=== PATIENT | male | born 1945 | race Caucasian/White ===

== ENCOUNTER 2023-10-24 11:58 | Inpatient (IN) | payer MEDICARE, BC ==
[~2023-10-24] VITALS: Ht 182.9 cm; Wt 99.7 kg
[~2023-10-24 11:58] MED LIST: ASPIRIN E.C. 8181 MG PO; DIOVAN160 M1 PO; EPA FISH OIL1000 MG PO; MULTIPLE VITAMI1 TAB PO; VYTORIN 10 MG-21 TAB PO
[2023-10-24] MEDS ORDERED: Dextrose 50% Water 25 GM/50 ML SYRINGE IV PRN (16:00)
[2023-10-24] MEDS ORDERED: Glucagon 1 MG VIAL IM PRN (16:00)
[2023-10-24] MEDS ORDERED: Dextrose (Glucose) 15 GM (4 x 3.75 GM) Chewable TABLET PACK PO PRN (16:00)
[2023-10-24] MEDS ORDERED: Docusate Sodium 100 MG CAP PO PRN (16:45)
[2023-10-24] MEDS ORDERED: Polyethylene Glycol 3350 17 GM PDS PO PRN (16:45)
[2023-10-24] MEDS ORDERED: Sennosides/Docusate 8.6-50 MG TAB PO PRN (16:45)
[2023-10-24] MEDS ORDERED: Naloxone 0.4 MG/ML VIAL IV PRN (16:45)
[2023-10-24] MEDS ORDERED: LIPITOR 40MG TA40 MG PO (16:48)
[2023-10-24] MEDS ORDERED: ASPIRIN E.C. 8181 MG PO (16:48)
[2023-10-24] MEDS ORDERED: ELIQUIS 5MG PO (16:48)
[2023-10-24] MEDS ORDERED: EPA FISH OIL1 SGL PO (16:49)
[2023-10-24] MEDS ORDERED: LOPRESSOR 550 MG/TAB PO (16:52)
[2023-10-24] MEDS ORDERED: Acetaminophen Oral Susp 325 MG/10.15 ML UD PEG PRN (17:00)
--- NOTE | 2023-10-24 17:36 | NUR ---
[facility] NO COMPLAINTS OF PAIN AT THIS TIME. VITALS STABLE. STARTED TUBE FEEDING THROUGH DOBHOFF PER ORDERS AT 50 MLS/HR. ASSESSED PT. PT HAS SOME WEAKNESS ON RUE. PT IS 1 ASSIST WITH WALKER AND GAIT BELT WHEN WALKING. TOLD PT TO CALL IF HE NEEDS TO GO TO THE BATHROM. BED ALARM ON. CALL LIGHT WITHIN REACH.
[2023-10-24 17:43] VITALS: BP 178/95; PULSE 84; TEMP 97.4
[2023-10-24] MEDS ORDERED: Insulin Aspart (NovoLOG) SQ SCH (18:00)
[2023-10-24 18:30] VITALS: BP_SYST 178
--- NOTE | 2023-10-24 20:00 | NUR ---
LAST SHIFT BP 178/95. RECHECKED BP 145/79
[2023-10-24 20:17] VITALS: BP 145/79; PULSE 98; TEMP 98.1
--- NOTE | 2023-10-24 20:30 | NUR ---
PT RESTING IN BED. A&OX4. SEE COMPLETED SHIFT ASSESSMENT. PT REQUEST SLEEPING AID. NOTIFIED BORIS MITCHELL. SEE NEW ORDER. PT TAKING MEDS CRUSHED IN WATER THROUGH DOBHOFF. JEVITY 1.5 AT 50CC/HR WITH 100CC H2O Q4HR FLUSH PER [place] PUMP. PT IRMA WELL EXCEPT FOR LOOSE STOOLS. HOB ELEVATED. LT SIDED WEAKNESS BUE, BLE. DENIES DISCOMFORT. CALL LIGHT IN REACH. BED ALARM SET.
[2023-10-24] MEDS ORDERED: Metoprolol Tartrate 50 MG TAB PO SCH (21:00)
[2023-10-24] MEDS ORDERED: Melatonin 3 MG TAB PO SCH (21:00)
[2023-10-24] MEDS ORDERED: Apixaban 5 MG TAB PO SCH (21:00)
--- NOTE | 2023-10-24 21:54 | NUR ---
PT ASSISTED TO BR WITH WALKER BY GENEVIEVE. PT UNSTEADY. PT HAD INCONTINENT LIQUID YELLOW STOOL. CHANGED CLOTHING ALL CLEANED UP. 2:1 ASSIST BACK TO BED. REQUIRED ASSIST TO LIFT LEGS UP INTO BED. CALL LIGHT IN REACH. BED ALARM SENT.
[2023-10-25 05:31] VITALS: BP 150/74; PULSE 100; TEMP 98.2
--- NOTE | 2023-10-25 06:00 | NUR ---
ASSISTED PT TO BSC. VOIDED SMALL AMT AND SOME IN URINAL. HAD SMALL LIQUID STOOL WITH VERY SMALL FORMED STOOLS. BACK TO SIDE OF BED. ASSISTED PT WITH ORAL CARE -SET UP AND UP AND EMPTYING BASIN. PT STARTED NEEZING SEVERAL TIMES. PT ABLE TO LIFT LEGS BACK INTO BED. CALL LIGHT IN REACH. BED ALARM SET.
[2023-10-25 07:00] VITALS: BP_SYST 150
[2023-10-25] MEDS ORDERED: Atorvastatin 40 MG TAB PO SCH (09:00)
--- NOTE | 2023-10-25 09:30 | NUR ---
PT UP WITH THERAPY, DOBHOFF TUBE FEEDING CONTINOUS @50. VSS, AM BG @105 NO INSULIN REQUIRED. AM MEDS GIVEN BY TUBE. PT TOLERATED WELL, NO OTHER NEEDS VOICED AT THIS TIME.
--- NOTE | 2023-10-25 10:04 | NUR ---
Initial visit; Door Frame Assembler Machine introduced herself to Juan and visited with him about the calming aspect of watching the snow fall and how nice and warm it is here inside. Patient says he is doing better and thanked Door Frame Assembler Machine for stopping and offering God's blessings.
--- NOTE | 2023-10-25 11:43 | NUR ---
PT SHOWERED WITH OT AND DOBHOFF STARTED TO COME OUT. NOTIFIED DR. MORRISSEY AND ORDERS RECIEVED TO ADVANCE AND THEN OBTAIN A KUB. CURRENTLY BEING DONE. CALLED ICU AND LONG KEY ICU CHARGE BROUGHT BRIDAL TO BE PLACED AFTER VERIFIED PLACEMENT.
--- NOTE | 2023-10-25 12:02 | NUR ---
TUBE FEEDING ON HOLD FOR RADIOLOGY TO CONFIRM PLACEMENT OR REPLACE PER DR. MORRISSEY.
--- NOTE | 2023-10-25 12:06 | NUR ---
[facility] REPORTED THAT DR. NELSON VERIFIED PLACEMENT AND MAY CONTINUE WITH TUBE FEEDING.
--- NOTE | 2023-10-25 14:10 | NUR ---
Has lack of transportation kept you from medical appts, meetings, work, or from getting things needed for daily living? no How often do you feel lonely or isolated from those around you? never Over the past 5 days, how much of the time has pain made it hard for you to sleep? no pain Over the past 5 days, how often have you limited your participation in therapy due to pain? no pain Over the past 5 days, how often have you limited your day-to-day activities because of pain? no pain Have you had 2 or more falls in the past year or any fall with an injury? no Did you have major surgery during the 100 days prior to admission? no
--- NOTE | 2023-10-25 16:16 | NUR ---
Rn Intern met with patient and his , Holli (ph#[phone]) to complete initial intake. [place] and sees Dr. Mayen at [facility] in [place] for primary care. Patient obtains medications from [facility] in [place] with no difficulties and does not have any DME at home. Patient is normally independent with ADLS and drives himself to medical appointments. Patient has stairs at home but does not have to use them. SW explained her role and advised she would check in next week.
[2023-10-25 17:20] VITALS: BP 175/106; PULSE 115; TEMP 97.8
[2023-10-25 17:24] VITALS: BP 146/88; PULSE 97
[2023-10-25 19:00] VITALS: BP_SYST 146
--- NOTE | 2023-10-25 21:30 | NUR ---
Patient resting in bed. Denies any pain or needs at this time. Assessment complete. Meds given via feeding tube. Patient is tolerating feeds well. Call light and personal items in reach. Bed in low position and bed alarm on.
[2023-10-26 05:32] VITALS: BP 148/92; PULSE 77; TEMP 98.1
--- NOTE | 2023-10-26 06:30 | NUR ---
Patient resting in bed with eyes closed. Respirations even and unlabored. No changes overnight. Call light and personal items in reach. Bed in low position and bed alarm on.
[2023-10-26 17:12] VITALS: BP 162/89; PULSE 110; TEMP 98.1
[2023-10-26 19:00] VITALS: BP_SYST 162
--- NOTE | 2023-10-26 20:35 | NUR ---
PT IN BED, WATCHING FOOTBALL. HAS DOBHOFF TUBE TO RT NARE WITH BRIDLE ON. PLACEMENT CONFIRMED, HS MEDS GIVEN CRUSHED IN WATER PER DOBHOFF TUBE. FLUSHED WITH WATER. HAS CONTINUOUS FEEDING OF JEVITY 1.5 AT 75CC/HR WHICH IS GOAL RATE, DENIES N/V. VOIDING PER URINAL WITHOUT PROBLEM. DENIES NEEDS AT THIS TIME.
[2023-10-27 06:03] VITALS: BP 155/89; PULSE 113; TEMP 97.5
[2023-10-27 06:30] VITALS: BP_SYST 155
--- NOTE | 2023-10-27 10:12 | NUR ---
SHIFT ASSESSMENT COMPLETE. VSS. PATIENT RESTING IN BED WATCHING TV. ALL MORNING MEDS GIVEN PER ORDERS THROUGH FEEDING TUBE. FEEDING TUBE IN PLACE, CONT. FEEDING GOING 75ML/HR, PATIENT TOLERSTING WELL. PATIENT HAD NO COMPLAINTS OR REQUEST AT THIS TIME. FALL PRECAUTIONS IN PLACE AND CALL LIGHT IN REACH.
[2023-10-27 17:11] VITALS: BP 132/81; PULSE 95; TEMP 98.2
[2023-10-27 19:21] VITALS: BP_SYST 132
--- NOTE | 2023-10-27 19:22 | NUR ---
RECEIVED CHANGE OF SHIFT REPORT FROM DAY SHIFT NURSE.
--- NOTE | 2023-10-28 02:42 | NUR ---
PATIENT UP IN CHAIR, RESTING, BREATHING NONLABORED AND EVEN. EXIT ALARM ON, CALL LIGHT IN REACH.
[2023-10-28 05:26] VITALS: BP 155/94; PULSE 93; TEMP 98
--- NOTE | 2023-10-28 07:04 | NUR ---
Change of shift report given to day shift nursePraveen.
[2023-10-28 07:11] VITALS: BP_SYST 155
--- NOTE | 2023-10-28 07:12 | NUR ---
Shift report received from night RN. No events reported overnight. Pt awake & sitting up on EOB. Denies pain, abd. pain, chest pain, difficulty breathing. Call light in reach. Fall precautions in place.
[2023-10-28 08:21] LABS: BILIRUBIN,TOTAL 0.6 mg/dL (0.2-1.2); CALCIUM 8.9 mg/dL (8.4-10.2); CREATININE, serum 0.83 mg/dL (0.72-1.25); MAGNESIUM 2.3 mg/dL (1.6-2.6); PHOSPHOROUS 3.6 mg/dL (2.3-4.7); POTASSIUM 4.1 mmol/L (3.5-4.5); TOTAL PROTEIN 7.2 gm/dL (6.2-8.1)
--- NOTE | 2023-10-28 09:42 | NUR ---
Pt off unit w/ PT.
--- NOTE | 2023-10-28 10:51 | NUR ---
Pt off unit for MBS.
--- NOTE | 2023-10-28 12:56 | NUR ---
Pt advanced to Soft & Bite sized diet w/ regular liquids. Pt sitting up in recliner w/ visitors at the bedside. Pt ate approx 40% of his lunch w/o coughing/choking. Pt tolerating regular liquids at the bedside w/o coughing/choking. Pt denies any needs at this time. Call light in reach. Fall precautions in place.
--- NOTE | 2023-10-28 13:03 | NUR ---
Pt ambulating off unit w/ PT.
--- NOTE | 2023-10-28 14:15 | NUR ---
Admission QIM scores were reviewed by the team. Code of 88 chosen for eating was determined by team discussion to be the most usual performance before interventions for this patient during the assessment period. Code of 4 chosen for oral hygiene was determined by team discussion to be the most usual performance before interventions for this patient during the assessment period. Code of 3 chosen for toileting hygiene was determined by team discussion to be the most usual performance for this patient during the discharge assessment period. Code of 2 chosen for toilet transfers was determined by team discussion to be the most usual performance for this patient during the discharge assessment period. Code of 3 chosen for shower/bathe self was determined by team discussion to be the most usual performance before interventions for this patient during the assessment period. Code of 4 chosen for upper body dressing was determined by team discussion to be the most usual performance before interventions for this patient during the assessment period. Code of 2 chosen for lower body dressing was determined by team discussion to be the most usual performance before interventions for this patient during the assessment period. Code of 1 chosen for putting on/taking off footwear was determined by team discussion to be the most usual performance before interventions for this patient during the assessment period. Code of 3 chosen for sit to lying was determined by team discussion to be the most usual performance before interventions for this patient during the assessment period. Code of 3 chosen for lying to sitting side of bed was determined by team discussion to be the most usual performance before interventions for this patient during the assessment period. Code of 4 chosen for sit to stand was determined by team discussion to be the most usual performance for this patient during the discharge assessment period. Code of 3 for car transfer was determined by team discussion to be the most usual performance before interventions for this patient during the assessment period. Code of 3 chosen for walking 10 feet was determined by team discussion to be the most usual performance for this patient during the discharge assessment period. Code of 3 chosen for walking 50 feet w/ 2 turns was determined by team discussion to be the most usual performance before interventions for this patient during the discharge assessment period. Code of 3 chosen for walking 150 feet was determined by team discussion to be the most usual performance before interventions for this patient during the assessment period.--Michelle Quach,
--- NOTE | 2023-10-28 15:57 | NUR ---
Denture Waxer contacted patient's , Holli and scheduled family meeting for Saturday at 0930. SW also met with patient to check in and notify him of family meeting. Patient had no questions or concerns at this time.
[2023-10-28 18:00] VITALS: BP 150/85; PULSE 111; TEMP 98.2
[2023-10-28 19:04] VITALS: BP_SYST 150
--- NOTE | 2023-10-28 19:04 | NUR ---
RECEIVED CHANGE OF SHIFT REPORT FROM DAY SHIFT NURSE.
--- NOTE | 2023-10-28 19:44 | NUR ---
CONFIRMED WITH [facility] REGARDING TUBE FEEDING ON HOLD, DISCONTINUING EVERY 6 HOUR FSBS, OKAY TO DISCONTINUE FSBS PREVIOUSLY ORDER, PATIENT HAS NO HISTORY OF DIABETES.
--- NOTE | 2023-10-28 20:09 | NUR ---
REPORTS TOLERATING ORAL INTAKE OF FOOD, DENIES NAUSEA,ABD PAIN, BLOATING AT THIS TIME.
--- NOTE | 2023-10-28 23:46 | NUR ---
PATIENT BACK TO BED FROM CHAIR WITH NO REPORTED NEEDS OR CONCERNS AT THIS TIME. DOBHOFF CONTINUES TO BE CLAMPED WITH CRUSHED/DILUTED MEDS GIVEN PER DR ORDER. PATIENT CONTINUES TO DENIES ABD BLOATING/NAUSEA/PAIN AT THIS TIME.
--- NOTE | 2023-10-29 04:30 | NUR ---
DENIES ANY NEEDS OR CONCERNS AT THIS TIME. EXIT ALARM ON, CALL LIGHT IN REACH.
--- NOTE | 2023-10-29 04:56 | NUR ---
UP IN CHAIR, REQUESTED AND GIVEN THIN LIQUID, APPLE JUICE. DENIES ANY DISCOMFORT/PAIN, OR ANY OTHER NEEDS OR CONCERNS. EXIT ALARM ON WHILE UP IN CHAIR WITH CALL LIGHT IN REACH.
[2023-10-29 04:57] VITALS: BP 124/89; PULSE 92; TEMP 97.6
--- NOTE | 2023-10-29 06:54 | NUR ---
CHANGE OF SHIFT REPORT GIVEN TO DAY SHIFT NURSECINDI.
[2023-10-29 07:07] VITALS: BP_SYST 124
--- NOTE | 2023-10-29 09:39 | NUR ---
PT UP TO RECLINER FOR BREAKFAST. SBAX1 TO BR. VOIDED AND RETURNED TO RECLINER. PT DENIES PAIN OR NEEDS. CONTINUE WITH CURRENT CAREPLAN. MEDS CRUSHED IN APPLESAUCE WORKED WELL FOR PT.
[2023-10-29 17:19] VITALS: BP 164/92; PULSE 103; TEMP 97.6
[2023-10-29 19:01] VITALS: BP_SYST 164
--- NOTE | 2023-10-29 19:02 | NUR ---
RECEIVED CHANGE OF SHIFT REPORT FROM DAY SHIFT NURSE. PATIENT RESTING IN BED DURING REPORT, EXIT ALARM ON, CALL LIGHT IN REACH. DENIES ANY NEEDS OR CONCERNS AT TIME OF REPORT.
[2023-10-30 04:17] VITALS: BP 134/95; PULSE 94; TEMP 97.6
--- NOTE | 2023-10-30 07:29 | NUR ---
RECIEVED REPORT FROM CLARE LAU RN.
[2023-10-30 07:30] VITALS: BP_SYST 134
--- NOTE | 2023-10-30 07:37 | NUR ---
CHANGE OF SHIFT REPORT GIVEN TO DAY SHIFT NURSESHEA.
--- NOTE | 2023-10-30 08:00 | NUR ---
PT ALERT AND ORITENTED, VSS. PT STATES HE HAD A GOOD NIGHT BUT WANTS THE NG TUBE OUT. PROVIDER AWARE WILL DISCUSS IN TEAM MEETING TODAY. MEDICATED PER EMAR, CRUSHED MEDS. SHIFT ASSESSMENT COMPLETE, DENIES PAIN AT THIS TIME. CALL LIGHT WITHIN REACH, CHAIR ALARM SET.
--- NOTE | 2023-10-30 16:04 | NUR ---
Marketing Effectiveness Manager met with patient to provide copy of team conference notes. SW advised patient that discharge date has been tentatively set for 11/06/23. Patient is agreeable to this. SW also discussed recommendation for outpatient PT/OT/ST. SW attempted to contact patient's and left a message.
[2023-10-30 18:00] VITALS: BP 135/74; PULSE 94; TEMP 98.6
[2023-10-30 19:00] VITALS: BP_SYST 135
--- NOTE | 2023-10-30 20:35 | NUR ---
PATIENT DOES NOT APPEAR TO BE IN DISTRESS. NO PAIN OR DISCOMFORT PER PATIENT. VISTORS AT BESIDE AT BEGINNING OF SHIFT. BED IN LOW POSITION AND CALL LIGHT WITHIN REACH. PATIENT HAS NO QUESTIONS OR CONCERNS AT THIS TIME.
[2023-10-31 05:23] VITALS: BP 123/79; PULSE 73; TEMP 97.6
[2023-10-31 07:00] VITALS: BP_SYST 123
--- NOTE | 2023-10-31 07:01 | NUR ---
Shift report received from night RN. No events reported overnight. Pt sleeping in right side lying position w/ even & unlabored resps. Call light in reach. Fall precautions in place.
--- NOTE | 2023-10-31 07:56 | NUR ---
Pt sitting up in recliner after eating breakfast independently. No coughing/choking noted while eating. Pt swallowed a.m. pills whole w/o difficulty. Pain/discomfort denied. Other needs denied. Call light in reach. Chair alarm on.
--- NOTE | 2023-10-31 10:57 | NUR ---
Pt off unit for Group Therapy.
--- NOTE | 2023-10-31 13:53 | NUR ---
Business Law Instructor met with patient's , Holli at bedside to review discharge date of 11/06/23. Holli is agreeable to DC date and is still tracking family meeting for Saturday at 0930.
--- NOTE | 2023-10-31 16:17 | NUR ---
Supervision provided as pt stood from bed to cane & ambulated to the bathroom. Pt in recliner after toileting. Has visitor at the bedside. Pt denies pain/discomfort. Denies other needs. Call light in reach. Chair alarm on.
[2023-10-31 16:41] VITALS: BP 121/67; PULSE 93; TEMP 97.5
--- NOTE | 2023-10-31 17:44 | NUR ---
Pt sitting up in recliner eating dinner independently. No coughing/choking noted during meal. Pt denies pain/discomfort. Denies other needs. Call light in reach. Chair alarm on.
[2023-10-31 18:50] VITALS: BP_SYST 121
[2023-10-31 20:20] VITALS: BP 112/64; PULSE 100; TEMP 98
[2023-11-01 06:00] VITALS: BP 127/81; PULSE 106; TEMP 98
[2023-11-01 07:13] VITALS: BP_SYST 127
--- NOTE | 2023-11-01 07:14 | NUR ---
Shift report received from night RN. No events reported overnight. Pt sitting up on EOB. Reports sleeping well overnight. Denies pain/discomfort. Call light in reach. Fall precautions in place.
--- NOTE | 2023-11-01 09:52 | NUR ---
Pt ambulating off unit w/ OT.
--- NOTE | 2023-11-01 12:27 | NUR ---
Pt sitting up in recliner eating lunch independently. No coughing/choking noted during meal. Pain/discomfort denied. Call light in reach. Chair alarm on.
[2023-11-01 17:39] VITALS: BP 147/75; BP_SYST 145; PULSE 94; TEMP 98
--- NOTE | 2023-11-01 18:09 | NUR ---
Pt up to ambulate w/ cane to the bathroom. Pt to recliner after toileting. Pain/discomfort denied. Other needs denied. Call light in reach. Ernestina alarm on.
[2023-11-01 19:00] VITALS: BP_SYST 147
--- NOTE | 2023-11-01 20:30 | NUR ---
Patient assessed at this time, see shift assessment, A/Ox4, denies pain or discomfort, denies further needs, call light and personal items within reach, will continue to monitor.
[2023-11-02 05:50] VITALS: BP 130/82; PULSE 85; TEMP 97.6
--- NOTE | 2023-11-02 05:59 | NUR ---
Patient resting in bed, looks comfortable, respirations even and unlabored.
--- NOTE | 2023-11-02 07:24 | NUR ---
RECIEVED REPORT FROM KENDALL WILCOX.
[2023-11-02 07:25] VITALS: BP_SYST 130
--- NOTE | 2023-11-02 12:01 | NUR ---
pt alert and oriented x4, VSS. Sitting up in recliner chair. Denies any pain at this time, shift assessment complete. Medicated per emar, takes pills whole with thin liquids. Having regular bowel movements. Denies further needs at this time. Call light within reach, chair alarm set.
[2023-11-02 17:38] VITALS: BP 135/77; PULSE 95; TEMP 98.2
[2023-11-02 19:00] VITALS: BP_SYST 135
--- NOTE | 2023-11-02 19:22 | NUR ---
Patient watching TV, took pils fine, denies pain or discomfort, denies further needs, call light and personal items within reach, will continue to monitor.
[2023-11-03 05:41] VITALS: BP 129/77; PULSE 85; TEMP 97.7
[2023-11-03 07:16] VITALS: BP_SYST 129
--- NOTE | 2023-11-03 08:30 | NUR ---
Patient is resting in bed, asks for assistance to sit on the side of his bed. Alert and oriented, denies any pain or discomfort. Assessment completed, meds given. No further needs at this time. Call light within reach.
[2023-11-03 18:27] VITALS: BP 130/81; PULSE 93; TEMP 97.5
[2023-11-03 19:00] VITALS: BP_SYST 130
--- NOTE | 2023-11-03 19:17 | NUR ---
Patient watching football game on TV, denies pain or discomfort, took pills fine with water, denies further needs, call light and personal items within reach, will continue to monitor.
[2023-11-04 05:09] VITALS: BP 120/84; PULSE 77; TEMP 98
[2023-11-04 06:52] LABS: ALBUMIN 2.9 gm/dL (3.4-4.8); BILIRUBIN,TOTAL 0.6 mg/dL (0.2-1.2); CREATININE, serum 0.98 mg/dL (0.72-1.25); PHOSPHOROUS 3.5 mg/dL (2.3-4.7); TOTAL PROTEIN 6.6 gm/dL (6.2-8.1)
--- NOTE | 2023-11-04 09:00 | NUR ---
Shift report received from night RN. No events reported overnight.
[2023-11-04 09:01] VITALS: BP_SYST 120
--- NOTE | 2023-11-04 12:05 | NUR ---
Pt sitting up in recliner eating lunch. Pt denies pain/discomfort. Denies other needs. Call light in reach. Chair alarm on. at the bedside.
--- NOTE | 2023-11-04 14:09 | NUR ---
Senior Actuarial Analyst attended family meeting which included patient's daughters and at bedside. Michelle [facility] Director opened the meeting by explaining it's purpose followed by report from IPR Physician. PT/OT/ST gave report on patient's progress and recommendations. JIMMY explained her role and reviewed discharge date of 11/06/23 with recommendation for outpatient PT/OT/ST. Patient would like to do this at [facility] in [place]. SW contacted [facility] and faxed referral. SW was advised their scheduling was down but that they would follow up with SW once it was up and running again.
--- NOTE | 2023-11-04 15:22 | NUR ---
Pt up to ambulate indepedently w/ cane from bed to bathroom. Gait steady. Pt now on Mod I status in room. Reminded pt he can call for help if needed.
--- NOTE | 2023-11-04 15:34 | NUR ---
The Interdisciplinary team discussed making the patient Independent in his room duringTeam Huddle. His current Levine Fall Score is moderate at 40 & Tinetti score was moderate at 21. He is currently using a cane for mobility & self care & demonstrates good safety. The team feels he is capable of being Modified Independent in his room at this time as he is aware of his deficits/limitations & cognitively able to problem solve his situations.--Michelle Quach, PD
--- NOTE | 2023-11-04 16:00 | NUR ---
Pt sitting up in recliner. Denies pain, other needs. Call light in reach. Remains on Mod I status in room.
[2023-11-04 17:08] VITALS: BP 129/82; PULSE 81; TEMP 97.8
[2023-11-04 19:00] VITALS: BP_SYST 128
--- NOTE | 2023-11-04 20:00 | NUR ---
PT IS STABLE ON ROUNDS. RESPIRATIONS EVEN AND UNLABORED. PT IS UP INDEPENDENT IN ROOM. URINE NOT VISUALIZED. PT DENIES COMPLICATIONS. LAST BM 11/04/23 PER PATIENT REPORT. NO SIGN OF DISTRESS AT THIS TIME.
[2023-11-05 05:34] VITALS: BP 109/72; PULSE 85; TEMP 98
--- NOTE | 2023-11-05 06:45 | NUR ---
up and in bathroom independently, bedside shift report received from Antoinette Berkowitz
[2023-11-05 06:59] VITALS: BP_SYST 109
--- NOTE | 2023-11-05 07:30 | NUR ---
sitting up on side of bed and had breakfast and tolerated well, full assessment completed, see interventions for further info
--- NOTE | 2023-11-05 09:15 | NUR ---
occupational therapy in to work with patient
--- NOTE | 2023-11-05 11:23 | NUR ---
speech therapy in to work with patient
--- NOTE | 2023-11-05 12:59 | NUR ---
Will lack of transportation kept you from medical appts, meetings, work, or from getting things needed for daily living? no How often do you feel lonely or isolated from those around you? never Over the past 5 days, how much of the time has pain made it hard for you to sleep? no pain Over the past 5 days, how often have you limited your participation in therapy due to pain? no pain Over the past 5 days, how often have you limited your day-to-day activities because of pain? no pain
--- NOTE | 2023-11-05 13:13 | NUR ---
ambulating out in [place] and working with physical therapy
--- NOTE | 2023-11-05 16:19 | NUR ---
in bed and appears to be sleeping, resp quiet and easy
--- NOTE | 2023-11-05 16:31 | NUR ---
Supervisor Central Supply contacted [facility] and scheduled appointments for outpatient therapy, then provided appointments to RN to include in discharge instructions. 11/08/23 1330 PT 11/13/[address] 11/19/23 1115 OT
[2023-11-05 18:00] VITALS: BP 144/82; PULSE 71; TEMP 98.2
--- NOTE | 2023-11-05 18:55 | NUR ---
bedside shift report given to KENDALL Rogers
[2023-11-05 19:00] VITALS: BP_SYST 144
--- NOTE | 2023-11-05 19:22 | NUR ---
report received from meenu joens. pt sitting in recliner watching tv. pt denies pain. chair alarm on. call light in reach. all needs met at this time.
--- NOTE | 2023-11-05 21:23 | NUR ---
shift assessment complete, see documentation. pt denies pain. pt tolerated hs meds well. pt now resting with eyes closed, equal and unlabored breaths noted. bed alarm on. call light in reach. all needs met at this time.
[2023-11-06 05:58] VITALS: BP 119/78; PULSE 87; TEMP 97.6
[2023-11-06 07:00] VITALS: BP_SYST 119
[2023-11-06] MEDS ORDERED: LIPITOR 40MG TA40 MG PO (10:34)
[2023-11-06] MEDS ORDERED: ELIQUIS 5MG PO (10:34)
[2023-11-06] MEDS ORDERED: LOPRESSOR 550 MG/TAB PO (10:35)
--- NOTE | 2023-11-06 13:03 | NUR ---
Supervisor Research [employer] met with patient to present and review IM form. Patient verbalized understanding and provided signature. SW placed form in chart and provided copy to patient. [facility][phone]
== END 2023-11-06 11:36 | disposition home health service (06) | DRG 57 ==
PROVIDERS: ADMIT Physical Medicine & Rehabilitation Sports Medicine
DX: I69.351 Hemiplegia and hemiparesis following cerebral infarction affecting right dominant side (principal); I69.392 Facial weakness following cerebral infarction; I69.328 Other speech and language deficits following cerebral infarction; I35.0 Nonrheumatic aortic (valve) stenosis; R26.89 Other abnormalities of gait and mobility; R53.81 Other malaise; R13.10 Dysphagia, unspecified; I69.391 Dysphagia following cerebral infarction; I48.91 Unspecified atrial fibrillation; I10 Essential (primary) hypertension; R19.7 Diarrhea, unspecified; E78.2 Mixed hyperlipidemia; E87.6 Hypokalemia; Z79.01 Long term (current) use of anticoagulants; Z74.09 Other reduced mobility; Z79.82 Long term (current) use of aspirin; Z79.899 Other long term (current) drug therapy
CPT/HCPCS: A9284

== ENCOUNTER → 2023-11-25 | Outpatient (CLI) | payer MEDICARE, BC ==
[~2023-11-25] MED LIST changes: +ELIQUIS 5MG PO; +EPA FISH OIL1 SGL PO; +LIPITOR 40MG TA40 MG PO; +LOPRESSOR 550 MG/TAB PO
== END ==
LOC: MHCPAIN 14:05
DX: I63.9 Cerebral infarction, unspecified (principal); G81.90 Hemiplegia, unspecified affecting unspecified side
CPT/HCPCS: G0463